=== PATIENT | male | born 1960 | race Caucasian/White ===

== ENCOUNTER 2018-06-03 21:34 | Emergency (ER) | payer OTHER, MEDICAID, SELFPAY ==
[2018-06-03 21:36] VITALS: BP 149/88; PULSE 95; RESP 20; O2SAT 100
--- NOTE | 2018-06-03 21:36 | ED.EXTPRO ---
HPI - Extremity Problem General Chief complaint: Fall Stated complaint: ETOH Time Seen by Provider: 06/03/18 21:36 Source: EMS Mode of arrival: EMS Limitations: other (intoxication) History of Present Illness HPI Narrative: 58-year-old male brought in by EMS for intoxication and bilateral knee and hip pain. EMS reports that they were called by the patient's friend whose house that he was at. There is no signs of trauma. Patient does not report any trauma. He states that he is known arthritis in his knees and hip. He states that his pain is secondary to this arthritis. There are no reports of falling however the patient does have bruising on the front of his forehead. He does admit to drinking this evening. Patient arrived not on a backboard not in a cervical collar. Related Data Home Medications Medication Instructions Recorded Confirmed Unobtainable 06/03/18 06/03/18 Allergies Allergy/AdvReac Type Severity Reaction Status Date / Time No Known Drug Allergies Allergy Verified 06/03/18 21:40 Review of Systems Review of Systems Somewhat limited secondary to patient's intoxication Constitutional Denies fever(s) and Denies headache(s) ENT Ears, Nose, Mouth, and Throat: Denies headache(s) Cardiovascular Denies chest pain and Denies dyspnea Respiratory Denies dyspnea Gastrointestinal Gastrointestinal: Denies abdominal pain Musculoskeletal Comments: Bilateral knee pain and right hip pain Integumentary/Breasts Comments: Bruising to forehead Neurologic Denies headache(s) Psychiatric Denies homicidal ideation and Denies suicidal ideation Hematologic/Lymphatic Comments: No reports of anticoagulation PFSH Medical History Arthritis (Acute) Surgical History No pertinent past surgical history (Acute) Social History lives independently: Yes Exam Initial Vital Signs Initial Vital Signs: Vital Signs Pulse Rate 95 H 06/03/18 21:36 Respiratory Rate 20 06/03/18 21:36 Blood Pressure 149/88 H 06/03/18 21:36 Pulse Oximetry 100 06/03/18 21:36 Const General: cooperative, well developed, well groomed and No acute distress Nutritional Appearance: average body habitus Orientation: alert, awake, oriented to person and confused Limitations: other limitations (Intoxication) HENMT Head: normal to inspection and normocephalic Ears: hearing grossly normal bilaterally Face and sinus: normal facial exam Mouth: oral mucosae normal Chest Chest: normal inspection of the chest and No crepitus Resp Effort & Inspection: normal respiratory effort Auscultation: clear to auscultation bilaterally Cardio Rate: regular rate Rhythm: regular rhythm Pulses: radial pulses present GI Inspection: non-distended Palpation: soft Back/Spine/Pelvis Cervical Spine: No cervical muscular tenderness, No cervical spinal tenderness and No step off deformity Skin Trauma: no lacerations or abrasions Other: Redness around his forehead with no signs of skin abrasions. No active bleeding. Neuro General: alert, awake and moves all extremities Speech: other (Slurred speech) Motor: muscle tone normal throughout Sensory Exam: no sensory deficits noted Extrem General: normal to inspection and capillary refill normal Psych Appearance: grossly normal and well kempt Thought Content: suicidality Scores GCS [place] coma scale eye opening: Spontaneous [place] coma scale verbal response: Orientated [place] coma scale motor response: Obey commands [place] coma scale total score: 15 Nexus Score for C-Spine Focal Neurologic deficit present: No Midline spinal tenderness present: No Altered level of conciousness present: No Intoxication present: Yes Distracting Injury Present: No Nexus Criteria for C-spine: 1 Course Orders Ordered: Discontinued Medications Sodium Chloride (Normal Saline 0.9%) 1,000 mls @ 1,000 mls/hr IV BOLUS ONE Stop: 06/03/18 22:36 Last Infusion: 06/03/18 23:17 Dose: 0 mls/hr Admin: 06/03/18 22:04 Dose: 1,000 mls/hr Vital Signs - 8 hr 06/03/18 23:07 06/04/18 04:37 Pulse Rate 88 89 Respiratory Rate 15 18 Blood Pressure [Left Arm] 133/89 138/79 Pulse Oximetry 96 94 [facility] - Extremity (Nontraumatic) Imaging Data CT scan - head: Radiologist's impression: No acute intracranial abnormality CT cervical spine: Radiologist's impression: Advanced multi level degenerative changes in multilevel postoperative change. No acute abnormality identified. Mild C4-C5 apparent spinal stenosis and slight anterior listhesis of C4 with respect to C5. Most likely chronic. Multilevel neural foraminal stenosis. [facility] Narrative Medical decision making narrative: A cervical collar was placed on the patient when he arrived secondary to his potential fall and also the fact that he was obviously intoxicated. He did remove the cervical collar on his own after returning from the CT scan. CT scan did not show any signs of acute abnormalities. Patient denies SI or HI. Patient has remained calm overnight. Patient was able to ambulate. Was clinically sober. Walked to the bathroom. We were able to clear up his name discrepancy. He initially came in with 1 name but then later on stated that his name was something else. Admitting did obtain all other information however the time of discharge they were unable to rectify the situation and stated that they needed to wait ?until day shift ?to get this corrected. I was informed that admitting had all of his correct information. Patient states his name is Yogi Leon the dated 1960. Patient stated he was going to call for a ride home. Again patient is clinically sober and a my opinion has capacity make decisions. Discharge Plan Departure Patient Disposition: Home Clinical Impression: Alcohol intoxication Instructions: Alcohol and Stress: There are Safer Ways to [place], Alcohol Use Disorder Prescriptions: No Action Unobtainable RF: 0
--- NOTE | 2018-06-03 21:38 | DI.CT.S_ITS ---
PROCEDURE: CT CERVICAL SPINE WO CON INDICATIONS: fall and drunk TECHNIQUE: Noncontrast 3 mm thick sections acquired from the skull base to the T4 level. Sagittal and coronal reformats were then constructed. For radiation dose reduction, the following was used: automated exposure control, adjustment of mA and/or kV according to patient size. COMPARISON: None. FINDINGS: Image quality: Excellent. Bones: No fractures or dislocations. Visualized superior ribs are intact. The anterior fusion from C5-C7 is noted. There is grade 1 anterolisthesis of C4 on C5 with severe disc space narrowing at C3-4, C4-5 and C7-T1. Multilevel spinal stenosis and foraminal narrowing are present. Soft tissues: Prevertebral soft tissues are normal in thickness. No paravertebral hematomas. No apical pneumothoraces. IMPRESSION: 1. Degenerative changes without visualized fracture. Dictated by: Nga Smith M.D. on 06/04/2018 at 9:21 Approved by: Nga Smith M.D. on 06/04/2018 at 9:24
--- NOTE | 2018-06-03 21:38 | DI.CT.S_ITS ---
PROCEDURE: CT HEAD/BRAIN WO CON INDICATIONS: Fall and drunk TECHNIQUE: Noncontrast 4.5 mm thick angled axial sections acquired from the foramen magnum to the vertex, with coronal and sagittal reformats. For radiation dose reduction, the following was used: automated exposure control, adjustment of mA and/or kV according to patient size. COMPARISON: None. FINDINGS: Image quality: Excellent. CSF spaces: Basal cisterns are patent. No extra-axial fluid collections. Ventricles are normal in size and shape. Brain: No midline shift. No intracranial masses or hemorrhage. Colin-white matter interface is normal. Skull and face: Calvarium and visualized facial bones are intact, without suspicious lesions. Sinuses: Visualized sinuses demonstrate minimal pansinus mucosal thickening. IMPRESSION: 1. No acute intracranial process. Dictated by: Nga Smith M.D. on 06/04/2018 at 9:07 Approved by: Nga Smith M.D. on 06/04/2018 at 9:09
[2018-06-03] MEDS: SODIUM CHLORIDE 0.9% 1,000 ML 1000 ML IV (22:04)
[2018-06-03 23:07] VITALS: BP 133/89; PULSE 88; RESP 15; O2SAT 96
--- NOTE | 2018-06-04 00:30 | PC.NURSE ---
0030 pt alert, speaking more clearly, c-collar removed per MD, pt moving all ext, states he does not recall events that led him here tonight, denies pain other than his chronic hip pain, taking po fluids
[2018-06-04 04:37] VITALS: BP 138/79; PULSE 89; RESP 18; O2SAT 94
[2018-06-04 06:56] VITALS: BP 141/86; PULSE 74; RESP 18; O2SAT 99
== END 2018-06-04 06:58 | disposition home or self-care (01) ==
PROVIDERS: Emergency Provider Emergency Medicine
DX: N30.90 Cystitis, unspecified without hematuria (principal)
CPT/HCPCS: 36591; 70450; 72125; 96361; 99283; 99284

== ENCOUNTER 2025-02-07 16:46 | Emergency (ER) | payer OTHER, MEDICAID, SELFPAY ==
[2025-02-07 16:51] VITALS: BP 144/80; PULSE 98; RESP 18; TEMP 36.9; O2SAT 97; BMI 22.4
--- NOTE | 2025-02-07 18:16 | ED.EAR ---
HPI - Ear Problem <Tawanna Lindsay PA-C - Last Filed: 02/07/25 19:05> General Chief complaint: Ear Stated complaint: Q-tip stuck in right ear Time Seen by Provider: 02/07/25 17:28 Source: patient Mode of arrival: Ambulatory History of Present Illness HPI Narrative: Mr. Leon is a very pleasant 64-year-old male with a reported past medical history normal ear presents to the emergency department for concern of Q tip stuck in his right ear. Patient states earlier today he was using a Q-tip when he pulled it out of his ear and he believes the tip of the Q-tip broke off in his ear. He brought in the Q-tip which is green plastic with white cotton. A Q-tip that he has with him does not have any plastic broken off. Denies pain. No other concerns. Related Data Previous Rx's ?Medication ?Instructions ?Recorded ofloxacin 0.3 % ear drops 10 drp EAR-BOTH DAILY 7 days #10 mL 02/07/25 Allergies Allergy/AdvReac Type Severity Reaction Status Date / Time No Known Drug Allergies Allergy Verified 02/07/25 16:54 Review of Systems <Tawanna Lindsay PA-C - Last Filed: 02/07/25 19:05> Review of Systems ROS Unobtainable: All systems reviewed & are unremarkable except as noted in HPI and below Patient History <Tawanna Lindsay PA-C - Last Filed: 02/07/25 19:05> Medical History Arthritis Surgical History No pertinent past surgical history Social History lives independently: Yes Smoking Status: Current every day smoker Smoking Status: Current every day smoker Exam <Tawanna Lindsay PA-C - Last Filed: 02/07/25 19:05> Narrative Exam Narrative: GENERAL: 64 year old patient appears stated age. Well-developed patient, in no acute distress. HEAD: Atraumatic. Normocephalic. EYES: No scleral icterus. No injection or drainage. ENT: Right ear canal without obstruction. Patient does have abrasions with scant bleeding within the canal. TM is visualized and is pearly garcia/white. Some fibers of cotton are visualized on the superior portion of the ear canal near the TM. The left ear canal however is completely obstructed by cerumen. NECK: Trachea midline. Cervical ROM intact. RESPIRATORY: ?Nonlabored respirations. ?Speaking in clear, full sentences. ? NEURO: AOx3. ?Clear speech. ?Moves all 4 extremities appropriately. Initial Vital Signs Initial Vital Signs: Vital Signs Temperature 98.5 F 02/07/25 16:51 Pulse Rate 98 H 02/07/25 16:51 Respiratory Rate 18 02/07/25 16:51 Blood Pressure 144/80 H 02/07/25 16:51 Pulse Oximetry 97 02/07/25 16:51 Oxygen Delivery Method Room Air 02/07/25 16:51 <Jana Pena MD - Last Filed: 02/07/25 23:59> Initial Vital Signs Initial Vital Signs: Vital Signs Temperature 98.5 F 02/07/25 16:51 Pulse Rate 98 H 02/07/25 16:51 Respiratory Rate 18 02/07/25 16:51 Blood Pressure 144/80 H 02/07/25 16:51 Pulse Oximetry 97 02/07/25 16:51 Oxygen Delivery Method Room Air 02/07/25 16:51 Procedures <Tawanna Lindsay PA-C - Last Filed: 02/07/25 19:05> Ear Wax Removal Left Ear: Time of procedure: 19:00 Results: Re-examined: cerumen removed completely TM Examination: TM(s) intact, normal appearance Ear Canal Exam: other (Otitis externa, erythematous and edematous ear canal.) Patient Tolerated Procedure: Well Complications: no problems Technique: ear canal curetted Course <SHAWN Sánchez Last Filed: 02/07/25 19:05> Vital Signs Vital signs: Vital Signs - 8 hr 02/07/25 16:51 02/07/25 19:02 Temperature 98.5 F 98.6 F Pulse Rate 98 H 68 Respiratory Rate 18 19 Blood Pressure 144/80 H 155/78 H Pulse Oximetry 97 98 Oxygen Delivery Method Room Air Room Air <Jana Pena MD - Last Filed: 02/07/25 23:59> Vital Signs Vital signs: Vital Signs - 8 hr 02/07/25 16:51 02/07/25 19:02 Temperature 98.5 F 98.6 F Pulse Rate 98 H 68 Respiratory Rate 18 19 Blood Pressure 144/80 H 155/78 H Pulse Oximetry 97 98 Oxygen Delivery Method Room Air Room Air Medical Decision Making <Tawanna Lindsay PA-C - Last Filed: 02/07/25 19:05> Medical Records Medical records reviewed: Yes I reviewed the patient's medical records. MDM Narrative Medical decision making narrative: 64-year-old male with a reported past medical history normal ear presents to the emergency department for concern of Q tip stuck in his right ear. Differential diagnosis includes but is not limited to infection, foreign body, etc. On exam patient is in no acute distress, nontoxic appearing. He is concerned that he has a Q-tip broken off in his right ear. Right ear exam reveals possibly a few pieces of cotton deep within the canal however his TM is fully visualized and he does have scant bleeding in the canal from trying to remove the Q-tip at home. Discussed with the patient that there is no obstruction, safest is to avoid additional trauma. However his left ear actually had complete cerumen impaction which I removed with a curette revealing significant otitis externa with erythema edema of the canal. No bleeding. We will treat patient with ofloxacin ear drops bilaterally for 7-10 days and advise he follow up promptly with the ENT. Patient feels much better after cerumen removal, verbalized understanding of all information agreeable to plan. He is stable for discharge home. Discharge Plan Departure Patient Disposition: Home Clinical Impression: Impacted cerumen of left ear Otitis externa Qualifiers: Otitis externa type: unspecified type Chronicity: acute Laterality: bilateral Qualified Code(s): H60.503 - Unspecified acute noninfective otitis externa, bilateral Instructions: How to Instill Ear Drops, DI for Otitis Externa Activity Restrictions/Additional Instructions: Dear Edward, Thank you for coming to the emergency department. Today you were evaluated for possible Q-tip stuck in your right ear. I do see a small amount of cotton in the right ear however it is not blocking the canal and the ear canal has some scraping/bleeding I do not want to further irritate this canal. However I did remove a large cerumen impaction from the left ear revealing an infection of the left ear canal. Please put 10 drops of ear drops into both of your ears once a day for the next 7-10 days. Please call and schedule an appointment with [facility] for follow up. Return to the emergency department if you develop any new or worsening symptoms, severe pain or other concerns. Please follow up with your primary care doctor within the next 2-3 days for ER follow-up. (If you do not have a PCP you can call [phone]. ?to schedule an appointment with an [facility] Primary Care Provider) IF YOU DEVELOP ANY NEW OR WORSENING SYMPTOMS, RETURN TO THE ER! Please read the attached instructions, they highlight more specific treatments and interventions for you at home. Thank you for letting me participate in your care, Tawanna Lindsay PA-C Prescriptions: New ofloxacin 0.3 % drops 10 drp EAR-BOTH DAILY 7 Days Qty: 10 0RF Referrals: Adama Rogers MD [Physician, Ear, Nose, Throat] Referral Note: Chronic ear problems Stand Alone Forms: Patient Portal/API ED Sign-out <Jana Pena MD - Last Filed: 02/07/25 23:59> [facility]: I was immediately available in the department for consultation throughout this patient's visit. Jana Pena MD
[2025-02-07 19:02] VITALS: BP 155/78; PULSE 68; RESP 19; TEMP 37; O2SAT 98
== END 2025-02-07 19:03 | disposition home or self-care (01) ==
PROVIDERS: Emergency Provider Physician Assistant
DX: H61.22 Impacted cerumen, left ear (principal); H60.503 Unspecified acute noninfective otitis externa, bilateral
CPT/HCPCS: 69210; 99281; 99283